=== PATIENT | female | born 1990 | race Native Hawaiian/Other Pacific Islander ===

== ENCOUNTER 2017-12-20 18:13 | Emergency (ER) | payer SELFPAY ==
--- NOTE | 2017-12-20 21:42 | Emergency Department Report ---
ED ENT HPI - General Chief complaint: Earache Stated complaint: HEADACHE PAIN INTO JAW Time Seen by Provider: 12/20/17 21:33 Source: patient Mode of arrival: Ambulatory Limitations: No Limitations - History of Present Illness Initial comments: 27-year-old female who is presenting with pain in the right ear. Patient states she's had a sore throat as moderate congestion for approximately one week and several hours ago felt a very sharp popping sensation in the right ear. Patient states felt like a gun and went off in her ear. There is no drainage from the ear canal. Patient's had persistent headache and some radiation into the jaw since this occurred. Patient denies any cough but does states she's had some minor sore throat and hurts when she swallows. Patient denies fevers chills nausea vomiting abdominal pain and diarrhea at this time. - Related Data Previous Rx's Medication Instructions Recorded Last Taken Type Azithromycin [Zithromax Z-NEETA] 250 mg PO DAILY #6 tablet 12/20/17 Unknown Rx HYDROcodone/APAP 5-325 [[place] 1 each PO Q4HR PRN #12 tablet 12/20/17 Unknown Rx 5/325] Neomy/Polymyx B/Hc Otic Susp 4 drops OT TID #1 bottle 12/20/17 Unknown Rx [Cortisporin (Otic) Susp] Allergies Allergy/AdvReac Type Severity Reaction Status Date / Time No Known Allergies Allergy Unverified 12/20/17 19:21 ED Dental HPI - General Chief complaint: Earache Stated complaint: HEADACHE PAIN INTO JAW Time Seen by Provider: 12/20/17 21:33 Source: patient Mode of arrival: Ambulatory Limitations: No Limitations - Related Data Previous Rx's Medication Instructions Recorded Last Taken Type Azithromycin [Zithromax Z-NEETA] 250 mg PO DAILY #6 tablet 12/20/17 Unknown Rx HYDROcodone/APAP 5-325 [[place] 1 each PO Q4HR PRN #12 tablet 12/20/17 Unknown Rx 5/325] Neomy/Polymyx B/Hc Otic Susp 4 drops OT TID #1 bottle 12/20/17 Unknown Rx [Cortisporin (Otic) Susp] Allergies Allergy/AdvReac Type Severity Reaction Status Date / Time No Known Allergies Allergy Unverified 12/20/17 19:21 ED Review of Systems ROS: Stated complaint: HEADACHE PAIN INTO JAW Other details as noted in HPI Comment: All other systems reviewed and negative ED Past Medical Hx - Past Medical History Previous Medical History?: No - Surgical History Past Surgical History?: No - Social History Smoking Status: Current Every Day Smoker Substance Use Type: Alcohol, Marijuana - Medications Home Medications: Home Medications Medication Instructions Recorded Confirmed Last Taken Type Azithromycin [Zithromax Z-NEETA] 250 mg PO DAILY #6 tablet 12/20/17 Unknown Rx HYDROcodone/APAP 5-325 [[place] 1 each PO Q4HR PRN #12 tablet 12/20/17 Unknown Rx 5/325] Neomy/Polymyx B/Hc Otic Susp 4 drops OT TID #1 bottle 12/20/17 Unknown Rx [Cortisporin (Otic) Susp] ED Physical Exam - General Limitations: No Limitations General appearance: alert, in no apparent distress - Head Head exam: Present: atraumatic, normocephalic - Eye Eye exam: Present: normal appearance - ENT ENT exam: Present: mucous membranes moist. Absent: normal orophraynx (patient has some mild tonsillar erythema and mild swelling), TM's normal bilaterally ( patient's right TM at the 6:00 region has a area of erythema with a possible perforation. There is some cloudy fluid behind the TM.) - Neck Neck exam: Present: normal inspection - Respiratory Respiratory exam: Present: normal lung sounds bilaterally. Absent: respiratory distress, wheezes, rales, rhonchi - Cardiovascular Cardiovascular Exam: Present: regular rate, normal rhythm. Absent: systolic murmur, diastolic murmur, rubs, gallop - GI/Abdominal GI/Abdominal exam: Present: soft, normal bowel sounds - Extremities Exam Extremities exam: Present: normal inspection - Back Exam Back exam: Present: normal inspection - Neurological Exam Neurological exam: Present: alert, oriented X3 - Psychiatric Psychiatric exam: Present: normal affect, normal mood - Skin Skin exam: Present: warm, dry, intact, normal color. Absent: rash ED Course Vital Signs 12/20/17 19:14 Temperature 98.3 F Pulse Rate 67 Respiratory 16 Rate Blood Pressure 132/89 O2 Sat by Pulse 100 Oximetry ED Medical Decision Making - Medical Decision Making Patient most likely has some buildup pressure from her mild pharyngitis that resulted in a tympanic membrane rupture. Patient will be started on azithromycin and ear drops and discharged home. Critical care attestation.: If time is entered above; I have spent that time in minutes in the direct care of this critically ill patient, excluding procedure time. ED Disposition Clinical Impression: Otitis media, serous, TM rupture Pharyngitis Qualifiers: Pharyngitis/tonsillitis etiology: unspecified etiology Qualified Code(s): J02.9 - Acute pharyngitis, unspecified Disposition: TO HOME OR SELFCARE Is pt being admited?: No Does the pt Need Aspirin: No Condition: Stable Instructions: Otitis Media (ED), Pharyngitis (ED), Ruptured Eardrum (ED) Prescriptions: Neomy/Polymyx B/Hc Otic Susp [Cortisporin (Otic) Susp] 4 drops OT TID #1 bottle
[2017-12-20 22:14] VITALS: BP 122/72
== END 2017-12-20 22:12 | disposition home or self-care (01) ==
LOC: ED 18:13
DX: H65.93 Unspecified nonsuppurative otitis media, bilateral (principal); H72.93 Unspecified perforation of tympanic membrane, bilateral; F17.200 Nicotine dependence, unspecified, uncomplicated; F12.10 Cannabis abuse, uncomplicated
CPT/HCPCS: 99282